=== PATIENT | male | born 1985 | race Caucasian/White ===

== ENCOUNTER → 2019-12-02 | Outpatient (REF) ==
--- NOTE | 2019-12-02 14:46 | Diagnostic Imaging Report ---
INDICATION: Silica exposure. FINDINGS: The heart size, mediastinal configuration, and pulmonary vascularity are within normal limits. There is no pleural effusion, pneumothorax, or pneumonia. The osseous structures are unremarkable. IMPRESSION: No acute cardiopulmonary abnormality. Dictated by: Dictated on workstation # [id number]
== END | disposition home or self-care (01) ==
LOC: OCC 14:09
PROVIDERS: ATTEND Nurse Practitioner Family
CPT/HCPCS: 71045